=== PATIENT | female | born 1970 | race Hispanic/Latino ===

== ENCOUNTER 2024-10-05 18:48 | Emergency (ER) | payer SELFPAY ==
[~2024-10-05] VITALS: Ht 144.8 cm; Wt 63.5 kg
[2024-10-05 19:10] LABS: BASOPHILS # (AUTO) 0.06 K/uL (0.00-0.20); BASOPHILS % (AUTO) 0.8 % (0.0-5.0); EOSINOPHILS # (AUTO) 0.38 K/uL (0.00-0.70); EOSINOPHILS % (AUTO) 5.2 % (0.0-8.0); IMMATURE GRANULOCYTE ABSOLUTE 0.02 K/uL (0-1); LYMPHOCYTES # (AUTO) 2.4 K/uL (1.0-4.8); LYMPHOCYTES % (AUTO) 32.3 % (21.0-51.0); MEAN CORPUSCULAR HEMOGLOBIN 27.7 pg (27.0-33.0); MEAN CORPUSCULAR HGB CONC 31.8 g/dL (32.0-36.0); MEAN CORPUSCULAR VOLUME 87.1 fL (79-99); MONOCYTES # (AUTO) 0.7 K/uL (0.1-1.0); NEUTROPHILS # (AUTO) 3.9 K/uL (1.8-7.7); NEUTROPHILS % (AUTO) 52.4 % (40.0-77.0); PLATELET COUNT (AUTO) 360 K/uL (130-400); RED BLOOD CELL COUNT(AUTO) 3.79 MIL/uL (4.00-5.50); RED CELL DISTRIBUTION WIDTH 16.3 % (11.0-15.5); WHITE BLOOD COUNT (AUTO) 7.4 K/uL (4.8-10.8)
--- NOTE | 2024-10-05 19:18 | NUR ---
PT CARE ASSUMED AT THIS TIME
[2024-10-05 19:20] LABS: CREATININE 1.2 mg/dL (0.5-1.0); POTASSIUM 4.4 mmol/L (3.5-5.1)
[2024-10-05 19:34] LABS: B-TYPE NATRIURETIC PEPTIDE 52 pg/mL (0-100)
--- NOTE | 2024-10-05 19:41 | HMCIMG ---
INDICATION: CHEST PAIN TECHNIQUE: CHEST 1VW COMPARISON: 10/07/2007 FINDINGS AND IMPRESSION: No acute consolidation or pleural effusion. Cardiac silhouette is within normal limits. Mild degenerative changes of the spine. The visualized upper abdomen appears unremarkable.
[2024-10-05 19:51] LABS: RAPID GROUP A STREP negative (NEGATIVE)
[2024-10-05 19:57] LABS: ALBUMIN 3.4 g/dL (3.5-5.0); BILIRUBIN,DIRECT 0.1 mg/dL (0.0-0.3); BILIRUBIN,TOTAL 0.2 mg/dL (0.2-1.0); TOTAL PROTEIN, SERUM 6.8 g/dL (6.0-8.3)
[2024-10-05 19:59] LABS: COVID19 (SARS ANTIGEN RAPID) PRESUMPTIVE NEGATIVE (NEGATIVE); INFLUENZA TYPE A Negative For Type A (NEGATIVE); INFLUENZA TYPE B Negative For Type B (NEGATIVE)
[2024-10-05] MEDS: 0.9%NACL 1000ML 1,000 ML IV ONE (20:19)
[2024-10-05] MEDS: ASPIRIN 325MG TAB PO ONE (20:19)
[2024-10-05] MEDS: PANTOPrazole 40 MG/VIAL IVP ONE (20:20)
[2024-10-05] MEDS: acetaMINOPHEN 500 MG TABLET PO ONE (20:20)
[2024-10-05 20:21] LABS: APPEARANCE,URINE CLEAR (CLEAR); BILIRUBIN,URINE NEGATIVE (NEGATIVE); COLOR,URINE LIGHT-YELLOW (YELLOW); GLUCOSE, URINE (UA) NEGATIVE (NEGATIVE); KETONES,URINE NEGATIVE (NEGATIVE); LEUKOCYTE ESTERASE ,URINE 250 Leu/uL (NEGATIVE); NITRATE,URINE NEGATIVE (NEGATIVE); OCCULT BLOOD,URINE NEGATIVE (NEGATIVE); PROTEIN,URINE 10 mg/dL (NEGATIVE); UROBILINOGEN,URINE 0.2 mg/dL (0.2-1.0)
[2024-10-05 20:22] LABS: ADD UA MICROSCOPIC YES
[2024-10-05 20:24] LABS: MUCUS,URINE RARE LPF (None Seen); SQUAMOUS EPITHELIAL CELL,UR FEW /HPF (0-2)
--- NOTE | 2024-10-05 21:33 | ERN ---
ED Note History of Present Illness Stated Complaint: CHEST PAIN Chief Complaint: Chest Pain Time Seen by MD: 18:56 Time Seen by Midlevel: 18:56 Dictation: The patient is a 53-year-old female with a history of hypertension, chronic back pain, fibromyalgia who presents to the emergency department with complaints of heartburn onset 2:00 p.m.. Patient reports that pain starts in the epigastric area and goes up to her mid chest in is intermediate lasting only a few seconds. Patient denies any shortness of breath. Reports pain radiates to right arm although patient reports that she has chronic body aches patient also reports frontal headache after giving medication in the ambulance for her epigastric pain. Denies any nausea or vomiting. Allergies: Coded Allergies: No Known Drug Allergies (Unverified Allergy, Unknown, 10/05/24) penicillin V (Unverified Allergy, Unknown, 10/05/24) Past Medical History Past Medical History: Anemia, Hypertension, Stroke Additional Past Medical Hx: CHRONIC BACK PAIN Surgical History: Other Surgical History Other: BILAT KNEE SURGERY, L HIP SX, MULTIPLE BACK SX'S RN Note Reviewed/Agreed w/PFSH: Yes Review of System Dictation Constitutional: Negative for fever,chills, and weight loss Eyes: Negative for injury, pain,redness, and discharge ENT: Negative for injury,pain or swelling Cardiovascular: Negative for palpitations, and edema positive for chest pain Respiratory: Negative for shortness of breath, cough, and wheezing, Abdomen/GI: Negative for abdominal pain, nausea, vomiting, diarrhea, and constipation Back: Negative for injury and pain : Negative for injury, bleeding and discharge MS/Extremity: Negative for injury and deformity Skin: Negative for rash, and discoloration Neuro: Negative for , weakness, numbness, tingling, and seizure positive for headache Psych: Negative for suicide ideation, homicidal ideation, and hallucinations Initial Vital Sign VS Vital Signs Date Time Temp Pulse Resp B/P (MAP) Pulse Ox O2 Delivery O2 Flow Rate FiO2 10/05/24 19:19 98.4 70 17 145/76 95 Room Air* 0 21 Physical Exam Dictation Vital Signs reviewed General Appearance: Alert, oriented x 3, no acute distress, well developed, nourished. Head and Face: non-traumatic. Eyes: PERRL, pink conjunctivas, eyelid no trauma, anterior chamber with arcus senilis. Ears: Pinnas intact and no signs of trauma or erythema ear canals clear and no discharge TM no erythema Nose: No discharge, no bleeding. Oropharynx: Mouth normal, tongue pink. pharynx clear,no erythema, tonsils no exudates, no abscesses noted, mucous membrane moist Neck: Supple, non-tender, no thyromegaly, no masses, no JVD, no bruits Breast:Deferred Chest:No tenderness, no crepitus, no paradoxical movement, no retractions Lungs:Clear, well-ventilated, symmetric, no rales, no wheezing, no rhonchi, no stridor, good breath sounds bilaterally Heart: Regular rate, regular rhythm, no murmur, no gallops Vascular: no peripheral edema, Abdomen: Soft, positive bowel sounds, nondistended, no guarding, nontender, no rebound, no masses no hepatomegaly, no splenomegaly, no Martini's sign, no hernias. Rectal: Deferred Genital: Deferred Neurological: Normal speech, motor function intact, sensory function intact , upper extremities equal in strength, lower extremities equal in strength, no facial droop, no slurred speech Musculoskeletal: Neck nontender, full range of motion, back nontender, full range of motion, Extremities: nontender, full range of motion Skin: Color pink, dry, no turgor, no rash, no lacerations, no abrasions, no contusions. Lymphatic: Deferred Results (Laboratory/Radiology) Laboratory/Radiology Laboratory Tests Test 10/05/24 18:59 10/05/24 19:30 10/05/24 19:31 10/05/24 20:14 White Blood Count 7.4 K/uL (4.8-10.8) Red Blood Count 3.79 MIL/uL (4.00-5.50) L Hemoglobin 10.5 g/dL (12.0-16.0) L Hematocrit 33.0 % (36-48) L Mean Corpuscular Volume 87.1 fL (79-99) Mean Corpuscular Hemoglobin 27.7 pg (27.0-33.0) Mean Corpuscular Hemoglobin Concent 31.8 g/dL (32.0-36.0) L Red Cell Distribution Width 16.3 % (11.0-15.5) H Platelet Count 360 K/uL (130-400) Mean Platelet Volume 9.8 fL (7.5-10.5) Immature Granulocyte % (Auto) 0.3 % (0-1) Neutrophils (%) (Auto) 52.4 % (40.0-77.0) Lymphocytes (%) (Auto) 32.3 % (21.0-51.0) Monocytes (%) (Auto) 9.0 % (3.0-13.0) Eosinophils (%) (Auto) 5.2 % (0.0-8.0) Basophils (%) (Auto) 0.8 % (0.0-5.0) Neutrophils # (Auto) 3.9 K/uL (1.8-7.7) Lymphocytes # (Auto) 2.4 K/uL (1.0-4.8) Monocytes # (Auto) 0.7 K/uL (0.1-1.0) Eosinophils # (Auto) 0.38 K/uL (0.00-0.70) Basophils # (Auto) 0.06 K/uL (0.00-0.20) Absolute Immature Granulocyte (auto 0.02 K/uL (0-1) Nucleated Red Blood Cells 0.0 % (0.0-0.19) Sodium Level 140 mmol/L (136-145) Potassium Level 4.4 mmol/L (3.5-5.1) Chloride Level 104 mmol/L (101-111) Carbon Dioxide Level 32 mmol/L (21-32) Blood Urea Nitrogen 29 mg/dL (7-18) H Creatinine 1.2 mg/dL (0.5-1.0) H Glomerular Filtration Rate Calc 54 mL/min (>90) Random Glucose 108 mg/dL (70-105) H Total Calcium 9.0 mg/dL (8.5-10.1) Total Creatine Kinase 241 U/L (21-232) H B-Type Natriuretic Peptide 52 pg/mL (0-100) Total Bilirubin 0.2 mg/dL (0.2-1.0) Direct Bilirubin 0.1 mg/dL (0.0-0.3) Aspartate Amino Transf (AST/SGOT) 19 U/L (10-37) Alanine Aminotransferase (ALT/SGPT) 20 U/L (12-78) Alkaline Phosphatase 114 U/L (50-136) Troponin I High Sensitivity 6 ng/L (4-50) Total Protein 6.8 g/dL (6.0-8.3) Albumin 3.4 g/dL (3.5-5.0) L Lipase 73 U/L (16-77) Influenza Type A Antigen Negative For Type A Influenza Type B Antigen Negative For Type B SARS-CoV-2 Antigen (Rapid) PRESUMPTIVE NEGATIVE Group A Streptococcus Rapid negative (NEGATIVE) Troponin I < 0.05 ng/mL (0.00-0.05) Urine Color LIGHT-YELLOW (YELLOW) Urine Appearance CLEAR (CLEAR) Urine pH 7.0 (5.0-8.0) Urine Specific [place] 1.016 (1.001-1.031) Urine Protein 10 mg/dL (NEGATIVE) H Urine Glucose (UA) NEGATIVE mg/dL (NEGATIVE) Urine Ketones NEGATIVE mg/dL (NEGATIVE) Urine Occult Blood NEGATIVE (NEGATIVE) Urine Nitrate NEGATIVE (NEGATIVE) Urine Bilirubin NEGATIVE mg/dL (NEGATIVE) Urine Urobilinogen 0.2 mg/dL (0.2-1.0) Urine Leukocyte Esterase 250 [place]/uL (NEGATIVE) H Urine RBC 2-5 /HPF (0-1) H Urine WBC 2-5 /HPF (0-1) H Urine Squamous Epithelial Cells FEW /HPF (0-2) Urine Bacteria None /HPF (None Seen) Test 10/05/24 20:52 Troponin I High Sensitivity 6 ng/L (4-50) REASON: CHEST PAIN ORDERING PHYSICIAN: ESTRELLA BOWDEN DO PROCEDURE: CXR1VW - CHEST 1VW INDICATION: CHEST PAIN TECHNIQUE: CHEST 1VW COMPARISON: 10/07/2007 FINDINGS AND IMPRESSION: No acute consolidation or pleural effusion. Cardiac silhouette is within normal limits. Mild degenerative changes of the spine. The visualized upper abdomen appears unremarkable. Labs Reviewed?: Yes EKG: (+) rhythm (Sinus rhythm) EKG Comment: Date:10/05/2024 Time:1914 Ventricular rate:67 HI interval:185 QRS duration:76 QT/QTc:459 EKG interpretation: Sinus rhythm Reviewed by ED Attending no STEMI ED Course ED Course Orders Procedure Category Date Status Time Vital Signs Per CPOE 10/05/24 Transmitted Routine 18:48 B-Type Natriuretic LAB 10/05/24 Complete Peptide 18:48 Chest 1vw RAD 10/05/24 Resulted 18:48 12 Lead Ekg Tracing- EKG 10/05/24 Logged Technical 18:48 Oxygen By Nc/Pulse Ox CPOE 10/05/24 Transmitted 18:48 Maintain Iv CPOE 10/05/24 Transmitted 18:48 Iv Insertion CPOE 10/05/24 Transmitted 18:48 Cardiac Monitoring CPOE 10/05/24 Transmitted 18:48 Pulse Oximetry With CPOE 10/05/24 Transmitted Vs And Prn 18:48 Cbc With Differential LAB 10/05/24 Complete 18:48 Activity: Br W/Brp CPOE 10/05/24 Transmitted With Assist 18:48 Creatine Kinase, Total LAB 10/05/24 Complete 18:48 Urinalysis Profile LAB 10/05/24 Complete 18:48 Troponin Poc Order LAB 10/05/24 Complete Only 18:48 Bedside Troponin-I LAB.ER 10/05/24 In Process (Poc) 18:48 Basic Metabolic Panel LAB 10/05/24 Complete 18:48 Troponin I High LAB 10/05/24 Complete Sensitivity 19:04 Lipase LAB 10/05/24 Complete 19:04 Hepatic Function Panel LAB 10/05/24 Complete 19:04 Covid19 (Sars Antigen LAB 10/05/24 Complete Rapid) 19:04 Influenza Type A & B, LAB 10/05/24 Complete Rapid 19:04 Rapid (Group A Strep) LAB 10/05/24 Complete 19:04 Pantoprazole 40mg Inj PHA 10/05/24 Complete (Protonix 40mg Inj 19:30 0.9%Nacl 1000ml (Ns PHA 10/05/24 Complete 1000ml) 19:30 Aspirin 325mg Tab PHA 10/05/24 Complete (Aspirin 325mg Tab) 19:30 Acetaminophen 500mg PHA 10/05/24 Complete Tab (Tylenol 500mg T 19:30 Troponin I High LAB 10/05/24 Complete Sensitivity 20:21 Culture Urine RAKESH 10/05/24 In Process 20:23 Current Medications Medications (Trade) Dose Ordered Sig/Dulce Route PRN Reason Start Time Stop Time Status Last Admin Dose Admin Acetaminophen (TYLenol 500MG TAB) 1,000 mg ONCE ONCE PO 10/05/24 19:30 10/05/24 20:13 DC Aspirin (Aspirin 325mg Tab) 325 mg ONCE ONCE PO 10/05/24 19:30 10/05/24 20:13 DC 10/05/24 20:19 Pantoprazole Sodium (PROTonix 40MG INJ) 40 mg ONCE ONCE IVP 10/05/24 19:30 10/05/24 20:13 DC 10/05/24 20:20 Sodium Chloride 1,000 ml @ 0 mls/hr ONCE ONCE IV 10/05/24 19:30 10/05/24 20:13 DC 10/05/24 20:19 Vital Signs Date Time Temp Pulse Resp B/P (MAP) Pulse Ox O2 Delivery O2 Flow Rate FiO2 10/05/24 19:19 98.4 70 17 145/76 95 Room Air* 0 21 HEART Score Response (Comments) Value History: Low suspicion (0) 0 EKG: Normal 0 Age: 45-65yrs (+1) 1 Risk Factors: 1-2 risk factors (+1) 1 Initial Troponin: Normal limit (0) 0 Total 2 Medical Decision Making MDM The patient is a 53-year-old female with a history of hypertension, chronic back pain, fibromyalgia who presents to the emergency department with complaints of heartburn onset 2:00 p.m.. Patient reports that pain starts in the epigastric area and goes up to her mid chest in is intermediate lasting only a few seconds. Patient denies any shortness of breath. Reports pain radiates to right arm although patient reports that she has chronic body aches patient also reports frontal headache after giving medication in the ambulance for her epigastric pain. Denies any nausea or vomiting. CBC showed no leukocytosis, mild normocytic anemia, chemistry showed GFR 54. Patient does report that she has been told she has kidney issues. CK at 2:41 a.m.. Patient received a L of NS in ER. Negative lipase, negative troponin x3, serology negative, urinalysis positive for leukocyte esterase. Patient will be discharged on antibiotics. Chest x-ray showed no acute pathology. Spoke to patient about laboratory results. Patient reports she feels better. She it has been intermediate but reports improving in pain. Patient neurologically intact, nontender abdomen to palpation. Discussed discharge planning with the patient who patient reports she feels okay to be discharged and follow up with her primary doctor. Patient in no acute distress, nontoxic appearance. Patient heart score with low risk for cardiac etiology. Differential diagnosis: ACS, pneumonia, pneumothorax, dehydration, gastritis Need for hospitalization: Patient does not meet criteria for hospitalization. There are no social concerns with this patient. DX & DISP Disposition: Discharge Departure Impression: Primary Impression: Atypical chest pain Additional Impressions: Chest pain with low risk for cardiac etiology, Gastritis, Headache, Anemia, UTI (urinary tract infection) Condition: Stable Scripts Sulfamethoxazole/Trimethoprim (Bactrim Ds Tablet) 800 Mg-160 Mg Tablet 1 TAB PO BID for 3 Days, #6 TAB 0 Refills Prov: MARKS,RICH SHOEMAKER 10/05/24 Pantoprazole Sodium (Pantoprazole Sodium) 20 Mg Tablet.dr 1 TAB PO DAILY for 30 Days, #30 TAB 0 Refills Prov: SELINARICH SHOEMAKER 10/05/24 Additional Instructions: Is follow up with your primary doctor in 1-2 days. If symptoms worsen, severe chest pain develop please return to ER. FOLLOW-UP WITH PRIMARY CARE PROVIDER IN 1 TO 2 DAYS. TAKE MEDICATIONS DIRECTED HERE IN THE EMERGENCY ROOM. OKAY TO CONTINUE HOME MEDICATIONS UNLESS OTHERWISE DISCUSSED DURING YOUR VISIT IN THE EMERGENCY ROOM TODAY. RETURN TO YOUR NEAREST EMERGENCY ROOM IF SYMPTOMS WORSEN OR IF THERE IS NO IMPROVEMENT. CALL 911 IF YOU NEED IMMEDIATE ASSISTANCE. TAKE TYLENOL OR MOTRIN OV [id number] NEEDED AND IF NO CONTRAINDICATIONS ARE PRESENT. INCREASE ORAL HYDRATION. A WOUND CULTURE OR URINE CULTURE WAS ORDERED HERE IN THE EMERGENCY ROOM DEPARTMENT PLEASE FOLLOW-UP WITH PRIMARY CARE PROVIDER AND ADVISE THEM TO GET REPEAT PORTS FROM OUR FACILITY. IF YOU HAD ANY LORA WRAP/SPLINTS THAT WERE APPLIED HERE, PLEASE DO NOT REMOVE THEM UNTIL YOU SEE YOUR PRIMARY CARE OR SPECIALTY. Referrals: SELF,REFERRAL (PCP) Time of Disposition: 21:49 I have reviewed the case, and I agree with, Diagnosis and Plan MARKS,RICH SHOEMAKER Oct 05, 2024 21:32
[2024-10-05] MEDS ORDERED: PANT20TA18 PO (21:53)
[2024-10-05] MEDS ORDERED: SULF1TAB42 PO (21:53)
[2024-10-05 22:05] VITALS: BP 142/81; PULSE 73; RESP 14; TEMP 98.3; O2SAT 97
--- NOTE | 2024-10-06 06:34 | EKG ---
[facility] Test Date: 2024-10-05 Test Time: 19:15:44 Pat Name: STACY RAMACHANDRAN Department: ED Room: Gender: F Cdl Driver: [id number] : 1970 Requested By: ESTRELLA BOWDEN Order Number: [id number] Reading MD: Abraham Miranda Measurements Intervals [place] Rate: 67 P: 61 ME: 185 QRS: 12 QRSD: 76 T: 51 QT: 435 QTc: 459 Interpretive Statements Sinus rhythm Left atrial enlargement No previous ECG available for comparison Electronically Signed On 10-07-2024 12:44:53 [employer] by Abraham Miranda Please click the below link to view image of tracing.
== END 2024-10-05 22:23 | disposition home or self-care (01) ==
LOC: EDH 18:48
DX: R07.89 Other chest pain (principal); K29.70 Gastritis, unspecified, without bleeding; R51.9 Headache, unspecified; D64.9 Anemia, unspecified; N39.0 Urinary tract infection, site not specified; I10 Essential (primary) hypertension; Z86.73 Personal history of transient ischemic attack (TIA), and cerebral infarction without residual deficits; Z88.0 Allergy status to penicillin; Z20.822 Contact with and (suspected) exposure to COVID-19
CPT/HCPCS: 99285; 96374; 71045; 96361; 87426; 82550; 80076; 84484 ×3; 80048; 83880; 83690; 85025; 87086; 87880; 87804 ×2; 81001; 36415; 93005; J7030; J2470